=== PATIENT | female | born 1950 | race Caucasian/White ===

== ENCOUNTER 2018-04-14 09:51 | Inpatient (IN) | payer MEDICARE, OTHER ==
[2018-04-14] MEDS: Lactated Ringers 1,000 ML IV SCH (10:15)
--- NOTE | 2018-04-14 16:29 | PCM.HP ---
H&P History of Present Illness - General Date of Service: 04/14/18 Admit Problem/Dx: Admission Diagnosis/Problem Admission Diagnosis/Problem Dehydration Source of Information: Patient History Limitations: Reports: No Limitations - History of Present Illness Initial Comments - Free Text/Narative: Has low grade temp for 6-8 weeks. 3 days ago had N and Vomiting for >12 hrs Friday. Has had a hard time holding down water for 3 days. Has had weakness and loss of appetite. Has Lost 5 pound recently. Abdominal pain moderate in severity cramping dull pain. Associated Symptoms: Reports: Cough, Loss of Appetite, Nausea/Vomiting, Weakness Abdominal Pain Score (Numeric/FACES): 1 Neck Pain Score (Numeric/FACES): 4 - Related Data Allergies/Adverse Reactions: Allergies Allergy/AdvReac Type Severity Reaction Status Date / Time clindamycin Allergy Difficulty Verified 03/16/15 06:52 Swallowing doxycycline Allergy Muscle Verified 04/14/18 14:02 Aches morphine Allergy Pain Verified 03/16/15 06:52 Home Medications: Home Meds Aspirin [Adult Low Dose Aspirin EC] 81 mg PO DAILY 10/05/14 [History] Calcium Carbonate/Vitamin D3 [Calcium 600-Vit D3 400 Tablet] 1 each PO DAILY 04/13 [History] Metoprolol Succinate 25 mg PO DAILY 10/05/14 [History] Multivitamin [Multi-Vitamin Daily] 1 each PO DAILY 10/05/14 [History] Levothyroxine [Synthroid] 50 mcg PO DAILY 04/14/18 [History] Past Medical History - Past Health History Medical/Surgical History: Denies Medical/Surgical History HEENT History: Reports: Cataract, Sinusitis Cardiovascular History: Reports: Other (See Below) Other Cardiovascular History: States "I think I have mitral valve prolapse" Respiratory History: Reports: Asthma Musculoskeletal History: Reports: Arthritis, Back Pain, Chronic, Fibromyalgia, Neck Pain, Chronic, Osteoarthritis Neurological History: Reports: Headaches, Chronic, Vertigo Endocrine/Metabolic History: Reports: Hypothyroidism - Infectious Disease History Infectious Disease History: Reports: Influenza - Past Surgical History HEENT Surgical History: Reports: Cataract Surgery Cardiovascular Surgical History: Reports: None Respiratory Surgical History: Reports: None Endocrine Surgical History: Reports: Other (See Below) Other Endocrine Surgeries/Procedures: "bursted nodule on thyroid-surgery on previously" Neurological Surgical History: Reports: Spinal Fusion, Other (See Below) Other Neurological Surgeries/Procedures: "Plate in neck from fusion" Musculoskeletal Surgical History: Reports: None Dermatological Surgical History: Reports: None Social & Family History - Family History Family Medical History: Noncontributory - Tobacco Use Smoking Status *Q: Never Smoker - Caffeine Use Caffeine Use: Reports: Coffee - Recreational Drug Use Recreational Drug Use: No H&P Review of Systems - Review of Systems: Review Of Systems: See Below General: Reports: Fever, Chills, Malaise, Weakness, Fatigue HEENT: Reports: No Symptoms Pulmonary: Reports: Shortness of Breath, Cough Gastrointestinal: Reports: Abdominal Pain, Diarrhea, Decreased Appetite, Nausea Genitourinary: Reports: No Symptoms Musculoskeletal: Reports: Muscle Pain Skin: Reports: No Symptoms Neurological: Reports: Dizziness, Headache, Weakness Exam - Exam Exam: See Below - Vital Signs Vital Signs: Last Vital Signs Temp 98.5 F 04/14/18 14:02 Pulse 65 04/14/18 14:02 Resp 16 04/14/18 14:02 BP 117/60 04/14/18 14:02 Pulse Ox 94 L 04/14/18 14:02 Weight: 155 lb - Exam General: Alert, Oriented, 4 HEENT: PERRLA, Hearing Intact, Mucosa Moist & [place], Nares Patent, Normal Nasal Septum, Posterior Pharynx Clear, Conjunctiva Clear, EOMI, EACs Clear, TMs Clear Lungs: Clear to Auscultation, Normal Respiratory Effort Cardiovascular: Regular Rate, Regular Rhythm GI/Abdominal Exam: Tender, Abnormal Bowel Sounds Back Exam: Normal Inspection, Full Range of Motion, NT Extremities: Normal Inspection Peripheral Pulses: 1+: Radial (L), Radial (R) Skin: Warm, Dry, Intact Neurological: Cranial Nerves Intact, Reflexes Equal Bilateral Neuro Extensive - Mental Status: Alert, Oriented x3, Normal Mood/Affect, Normal Cognition DTR: 1+: Bicep (L), Bicep (R) Psychiatric: Alert, Normal Affect, Normal Mood - Patient Data Result Diagrams: 04/14/18 16:32 04/14/18 16:32 Problem List Initiated/Reviewed/Updated: Yes Orders Last 24hrs: Active Orders 24 hr Category Date Time Status Admission Status [Patient Status] [ADT] Routine ADT 04/14/18 10:00 Active Intake and Output [RC] QSHIFT Care 04/14/18 10:36 Active Up ad Li [RC] ASDIRECTED Care 04/14/18 10:02 Active Vital Signs [RC] Q4H Care 04/14/18 10:02 Active Clear Liquid Diet [DIET] Diet 04/14/18 Lunch Active CXR [Chest 2V] [CR] Routine Exams 04/14/18 16:16 Ordered CBC WITH AUTO DIFF [HEME] Routine Lab 04/14/18 16:15 Ordered CLOSTRIDIUM DIFFICILE BY PCR [RM] Routine Lab 04/14/18 16:19 Ordered COMPREHENSIVE METABOLIC PN,CMP [CHEM] Routine Lab 04/14/18 16:15 Ordered CULTURE URINE [RM] Routine Lab 04/15/18 05:00 Ordered Lactated Ringers [Ringers, Lactated] 1,000 ml Med 04/14/18 10:15 Active IV ASDIRECTED SCD [Sequential Compression Device] [OM.PC] Routine Oth 04/14/18 10:04 Ordered Code Status [Resuscitation Status] Routine Resus Stat 04/14/18 10:01 Ordered Medication Orders Lactated Ringer's (Ringers, Lactated) 1,000 mls @ 100 mls/hr IV ASDIRECTED ANTHONY Last Admin: 04/14/18 10:15 Dose: 100 mls/hr Assessment/Plan Comment:: Assessment/Plan: #1. Dehydration, diarrhea: Will give fluids slowly. Blood work pending. #2. Viral Syndrome. #3. HTN: continue with meds. #4. Fibramyalgias: chronic and stable #5. Hypothyroidism: Will continue with thyroid medication
[2018-04-15] MEDS: Lactated Ringers 1,000 ML IV SCH ×2 (05:39→18:14)
[2018-04-15] MEDS: Levothyroxine 50 MCG Tab PO SCH (07:20)
--- NOTE | 2018-04-15 09:43 | CR ---
Chest 2V Comparison: December 2008. FINDINGS: There is hyperinflation consistent with COPD. The heart and vascular structures are normal in appearance. No infiltrates or effusions are demonstrated. The skeletal structures are unremarkable . IMPRESSION: 1. No acute findings.
[2018-04-15] MEDS: Multivitamins with Iron/Calcium/Folic Acid/Minerals Tab PO SCH (09:47)
[2018-04-15] MEDS: Calcium Carbonate/Vitamin D3 1500 MG-400 Units Tab PO SCH (09:47)
[2018-04-15] MEDS: Metoprolol Succinate 25 MG Tab.ER PO SCH (09:47)
[2018-04-15] MEDS: Aspirin 81 MG Tab.EC PO SCH (09:47)
[2018-04-15] MEDS: Loperamide 2 MG Cap PO PRN ×2 (12:57→18:13)
[2018-04-15] MEDS: Ondansetron 4 MG Tab.DIS PO PRN ×2 (12:57→18:13)
[2018-04-16] MEDS: Lactated Ringers 1,000 ML IV SCH ×2 (03:34→10:47)
[2018-04-16] MEDS ORDERED: fentaNYL 100 MCG/2 ML SDV ONE (07:04)
[2018-04-16] MEDS ORDERED: Midazolam 1 MG/ML 2 ML SDV ONE (07:04)
[2018-04-16] MEDS ORDERED: Propofol 200 MG/20 ML SDV ONE (07:04)
--- NOTE | 2018-04-16 08:02 | PCM.PN ---
- General Info Date of Service: 04/15/18 Subjective Update: Every time she eats she has diarrhea with mild nausea without vomiting. He pain level is 6/10. Functional Status: Reports: Pain Controlled - Review of Systems General: Reports: Weakness HEENT: Reports: No Symptoms Pulmonary: Reports: No Symptoms Cardiovascular: Reports: No Symptoms Gastrointestinal: Reports: Diarrhea Genitourinary: Reports: No Symptoms Musculoskeletal: Reports: No Symptoms Skin: Reports: No Symptoms Neurological: Reports: No Symptoms Psychiatric: Reports: No Symptoms - Patient Data Vitals - Most Recent: Last Vital Signs Temp 96.8 F 04/16/18 07:50 Pulse 68 04/16/18 07:50 Resp 20 04/16/18 07:50 BP 87/37 L 04/16/18 07:50 Pulse Ox 96 04/16/18 07:50 Weight - Most Recent: 155 lb I&O - Last 24 Hours: Intake & Output 04/15/18 04/16/18 04/16/18 22:59 06:59 14:59 Intake Total 1643 1521 Output Total 1275 900 400 Balance 368 621 -400 Lab Results Last 24 Hours: Laboratory Results - last 24 hr 04/15/18 Range/Units 08:23 Monoscreen Negative (NEGATIVE) [place] Results Last 24 Hours: Microbiology 04/15/18 00:01 Urine Culture - Preliminary Urine, Clean Catch Med Orders - Current: Current Medications Aspirin (Halfprin) 81 mg PO DAILY [facility] Last Admin: 04/15/18 09:47 Dose: Not Given Calcium Carbonate (Caltrate 600+D 1500 Mg-400 Units) 1 tab PO DAILY [facility] Last Admin: 04/15/18 09:47 Dose: 1 tab Lactated Ringer's (Ringers, Lactated) 1,000 mls @ 100 mls/hr IV ASDIRECTED [facility] Last Admin: 04/16/18 03:34 Dose: 100 mls/hr Levothyroxine Sodium (Synthroid) 50 mcg PO ACBREAKFAST [facility] Last Admin: 04/15/18 07:20 Dose: 50 mcg Loperamide HCl (Imodium) 2 mg PO ASDIRECTED PRN PRN Reason: Diarrhea Last Admin: 04/15/18 18:13 Dose: 2 mg Metoprolol Succinate (Toprol Xl) 25 mg PO DAILY [facility] Last Admin: 04/15/18 09:47 Dose: 25 mg Multivitamins/Minerals (Thera M Plus) 1 tab PO DAILY [facility] Last Admin: 04/15/18 09:47 Dose: Not Given Ondansetron HCl (Zofran Odt) 4 mg PO Q4H PRN PRN Reason: Nausea/Vomiting Last Admin: 04/15/18 18:13 Dose: 4 mg Discontinued Medications Fentanyl (Sublimaze) Confirm Administered Dose 100 mcg .ROUTE .STK-MED ONE Stop: 04/16/18 07:05 Midazolam HCl (Versed 1 Mg/Ml) Confirm Administered Dose 2 mg .ROUTE .STK-MED ONE Stop: 04/16/18 07:05 Propofol (Diprivan 20 Ml) Confirm Administered Dose 200 mg .ROUTE .STK-MED ONE Stop: 04/16/18 07:05 - Exam General: Alert, Oriented HEENT: Pupils Equal, Pupils Reactive, EOMI, Mucous Membr. Moist/[place] Neck: Supple Lungs: Clear to Auscultation, Normal Respiratory Effort Cardiovascular: Regular Rate, Regular Rhythm GI/Abdominal Exam: Tender, Other (There is pain to palpation thoughout the abd and epigastric area) Extremities: Normal Inspection, Normal Range of Motion, Non-Tender, No Pedal Edema, Normal Capillary Refill Peripheral Pulses: 1+: Radial (L), Radial (R) Skin: Warm, Dry, Intact - Problem List Review Problem List Initiated/Reviewed/Updated: Yes - My Orders Last 24 Hours: My Active Orders 04/15/18 07:30 Levothyroxine [Synthroid] 50 mcg PO ACBREAKFAST 04/15/18 09:00 Aspirin [Halfprin] 81 mg PO DAILY Calcium Carbonate/Vitamin D3 [Caltrate 600+D 1500 MG-400 Units] 1 tab PO DAILY Metoprolol Succinate [Toprol XL] 25 mg PO DAILY Multivitamins w-Iron/Ca/FA/Min [Thera M Plus] 1 tab PO DAILY 04/15/18 12:32 Ondansetron [Zofran ODT] 4 mg PO Q4H PRN 04/15/18 12:33 Loperamide [Imodium] 2 mg PO ASDIRECTED PRN 04/15/18 12:39 H PYLORI, IGM, IGG, IGA AB Routine 04/15/18 21:09 Verify Patient Consent Obtain [RC] ASDIRECTED 04/15/18 Lunch Regular Diet [DIET] 04/16/18 07:45 JUSTIN TEST [RM] Routine 04/16/18 Breakfast Nothing per Oral After Midnight Diet [DIET] - Plan Plan:: Assessment/Plan: #1. Diarrhea: Etiology unknown. Will do an EGD in the morning.H Pylori is pending and C Dif was neg. Her Monocytes were elevated and silvia test was neg. #2. Viral Syndrome. #3. HTN: continue with meds. #4. Fibramyalgias: chronic and stable #5. Hypothyroidism: Will continue with thyroid medication
[2018-04-16] MEDS: Levothyroxine 50 MCG Tab PO SCH (08:36)
[2018-04-16] MEDS: Calcium Carbonate/Vitamin D3 1500 MG-400 Units Tab PO SCH (09:27)
[2018-04-16] MEDS: Multivitamins with Iron/Calcium/Folic Acid/Minerals Tab PO SCH (09:27)
[2018-04-16] MEDS: Aspirin 81 MG Tab.EC PO SCH (09:27)
[2018-04-16] MEDS: Metoprolol Succinate 25 MG Tab.ER PO SCH (09:28)
--- NOTE | 2018-04-16 10:26 | PROC ---
DATE OF PROCEDURE: 04/16/2018 INDICATION: Christianne is a 68-year-old female who comes in because of dehydration, diarrhea, and vomiting as well as abdominal pain. I advised her to have an esophageal gastroduodenoscopy. I did not identify any reason for the diarrhea as it has not been found as of yet. The risks and benefits were explained to her and the procedure was done in the OR. The risks and benefits were explained to her. PROCEDURE IN DETAIL: Anesthesia was given by nurse interior decorator painting. The Olympus 180 scope was used and it was placed into the pharynx and into the esophagus without difficulty and advanced under direct vision into the stomach. The pylorus was identified and advanced in the first and second part of the duodenum. Upon retraction of the tube, noted no duodenal lesion or abnormality. The tube was brought back into the stomach, which revealed very mild erythema. Biopsy was done for Helicobacter pylori, Remy. She had good observation of the greater and lesser curvature as well as retroflexed into the fundus, which revealed no abnormality. There was a small amount of blood noted after the biopsy. This did stop, however. The GE junction was identified and air was withdrawn from the stomach. There was a hiatal hernia noted 2-3 cm in size. The remainder of the esophagus was unremarkable. The vocal cords were unremarkable. No obvious pathology noted. The tube was removed. The patient tolerated the procedure well. PREOP: Abdominal pain. POSTOP: 1. Mild gastric mucosa erythema. Biopsy pending for Helicobacter pylori. 2. Hiatal hernia. Wolf Otoole MD /[id number]
[2018-04-16] MEDS: Loperamide 2 MG Cap PO PRN ×2 (10:49→14:59)
[2018-04-16] MEDS ORDERED: Lactobacillus Rhamnosus GG (Probiotic) Cap PO SCH (15:00)
[2018-04-16 15:44] VITALS: BP 143/67
--- NOTE | 2018-04-16 17:38 | PCM.PN ---
- General Info Date of Service: 04/16/18 - Review of Systems General: Reports: Weakness, Fatigue HEENT: Reports: No Symptoms Pulmonary: Reports: Cough Cardiovascular: Reports: No Symptoms Gastrointestinal: Reports: Abdominal Pain Genitourinary: Reports: No Symptoms Musculoskeletal: Reports: No Symptoms Skin: Reports: No Symptoms Neurological: Reports: No Symptoms Psychiatric: Reports: No Symptoms - Patient Data Vitals - Most Recent: Last Vital Signs Temp 98.7 F 04/16/18 15:40 Pulse 75 04/16/18 15:40 Resp 16 04/16/18 15:40 BP 143/67 H 04/16/18 15:40 Pulse Ox 94 L 04/16/18 15:40 Weight - Most Recent: 155 lb I&O - Last 24 Hours: Intake & Output 04/16/18 04/16/18 04/16/18 06:59 14:59 22:59 Intake Total 1521 1520 Output Total 900 2080 450 Balance 621 -560 -450 [place] Results Last 24 Hours: Microbiology 04/15/18 00:01 Urine Culture - Preliminary Urine, Clean Catch Med Orders - Current: Current Medications Aspirin (Halfprin) 81 mg PO DAILY [facility] Last Admin: 04/16/18 09:27 Dose: 81 mg Calcium Carbonate (Caltrate 600+D 1500 Mg-400 Units) 1 tab PO DAILY [facility] Last Admin: 04/16/18 09:27 Dose: Not Given Lactated Ringer's (Ringers, Lactated) 1,000 mls @ 100 mls/hr IV ASDIRECTED [facility] Last Admin: 04/16/18 10:47 Dose: 100 mls/hr Lactobacillus Rhamnosus (Culturelle) 2 cap PO BID [facility] Last Admin: 04/16/18 15:40 Dose: 2 cap Levothyroxine Sodium (Synthroid) 50 mcg PO ACBREAKFAST [facility] Last Admin: 04/16/18 08:36 Dose: 50 mcg Loperamide HCl (Imodium) 2 mg PO ASDIRECTED PRN PRN Reason: Diarrhea Last Admin: 04/16/18 14:59 Dose: 2 mg Metoprolol Succinate (Toprol Xl) 25 mg PO DAILY [facility] Last Admin: 04/16/18 09:28 Dose: 25 mg Multivitamins/Minerals (Thera M Plus) 1 tab PO DAILY [facility] Last Admin: 04/16/18 09:27 Dose: Not Given Ondansetron HCl (Zofran Odt) 4 mg PO Q4H PRN PRN Reason: Nausea/Vomiting Last Admin: 04/15/18 18:13 Dose: 4 mg Discontinued Medications Fentanyl (Sublimaze) Confirm Administered Dose 100 mcg .ROUTE .STK-MED ONE Stop: 04/16/18 07:05 Midazolam HCl (Versed 1 Mg/Ml) Confirm Administered Dose 2 mg .ROUTE .STK-MED ONE Stop: 04/16/18 07:05 Propofol (Diprivan 20 Ml) Confirm Administered Dose 200 mg .ROUTE .STK-MED ONE Stop: 04/16/18 07:05 - Exam General: Alert, Oriented HEENT: Pupils Equal, Pupils Reactive, EOMI, Mucous Membr. Moist/[place] Neck: Supple Lungs: Clear to Auscultation, Normal Respiratory Effort Cardiovascular: Regular Rate, Regular Rhythm GI/Abdominal Exam: Non-Tender Back Exam: Normal Inspection, Full Range of Motion Extremities: Normal Inspection, Normal Range of Motion, Non-Tender, No Pedal Edema, Normal Capillary Refill Peripheral Pulses: 1+: Radial (L), Radial (R) Skin: Warm, Dry, Intact Psy/Mental Status: Alert, Normal Affect, Normal Mood - Problem List Review Problem List Initiated/Reviewed/Updated: Yes - My Orders Last 24 Hours: My Active Orders 04/15/18 21:09 Verify Patient Consent Obtain [RC] ASDIRECTED 04/16/18 07:45 ERIN TEST [RM] Routine 04/16/18 15:00 Lactobacillus Rhamnosus GG [Culturelle] 2 cap PO BID - Plan Plan:: Assessment/Plan: #1. Diarrhea: Etiology unknown. EGD was negative and Erin test is pending. Diarrhea is improved with meds. Will Discharge home today and follow in the office next week. #2. Viral Syndrome. #3. HTN: continue with meds. #4. Fibramyalgias: chronic and stable #5. Hypothyroidism: Will continue with thyroid medication
--- NOTE | 2018-04-16 17:45 | PCM.DCSUM1 ---
Discharge Summary - Hospital Course Brief History: Has low grade temp for 6-8 weeks. 5 days ago had N and Vomiting for >12 hrs Friday. Has had a hard time holding down water for 3 days before admission. Has had weakness and loss of appetite. Has Lost 5 pound recently. Abdominal pain moderate in severity cramping dull pain. - Discharge Data Discharge Date: 04/16/18 Discharge Disposition: Home, Self-Care 01 Condition: Good - Patient Summary/Data Hospital Course: Diarrhea has improved with medication. The EGD was negative. Yesica test is pending. Diarrhea is improving. Will see next week in the office. C.Diff was neg. Dehydration as improved. - Patient Instructions Diet: Heart Healthy Diet Activity: As Tolerated - Discharge Plan Home Medications: Home Meds Aspirin [Adult Low Dose Aspirin EC] 81 mg PO DAILY 10/05/14 [History] Calcium Carbonate/Vitamin D3 [Calcium 600-Vit D3 400 Tablet] 1 each PO DAILY 04/13 [History] Metoprolol Succinate 25 mg PO DAILY 10/05/14 [History] Multivitamin [Multi-Vitamin Daily] 1 each PO DAILY 10/05/14 [History] Levothyroxine [Synthroid] 50 mcg PO DAILY 04/14/18 [History] Lactobacillus Rhamnosus GG [Culturelle] 2 cap PO BID cap 04/16/18 [Rx] Loperamide [Imodium] 2 mg PO ASDIRECTED PRN cap 04/16/18 [Rx] Ondansetron [Zofran ODT] 4 mg PO Q4H PRN tab.dis 04/16/18 [Rx] - Patient Data Vitals - Most Recent: Last Vital Signs Temp 98.7 F 04/16/18 15:40 Pulse 75 04/16/18 15:40 Resp 16 04/16/18 15:40 BP 143/67 H 04/16/18 15:40 Pulse Ox 94 L 04/16/18 15:40 Weight - Most Recent: 155 lb I&O - Last 24 hours: Intake & Output 04/16/18 04/16/18 04/16/18 06:59 14:59 22:59 Intake Total 1521 1520 Output Total 900 2080 450 Balance 621 -560 -450 LANI Results - Last 24 hrs: Microbiology 04/15/18 00:01 Urine Culture - Preliminary Urine, Clean Catch Med Orders - Current: Current Medications Aspirin (Halfprin) 81 mg PO DAILY [facility] Last Admin: 04/16/18 09:27 Dose: 81 mg Calcium Carbonate (Caltrate 600+D 1500 Mg-400 Units) 1 tab PO DAILY [facility] Last Admin: 04/16/18 09:27 Dose: Not Given Lactated Ringer's (Ringers, Lactated) 1,000 mls @ 100 mls/hr IV ASDIRECTED [facility] Last Admin: 04/16/18 10:47 Dose: 100 mls/hr Lactobacillus Rhamnosus (Culturelle) 2 cap PO BID [facility] Last Admin: 04/16/18 15:40 Dose: 2 cap Levothyroxine Sodium (Synthroid) 50 mcg PO ACBREAKFAST [facility] Last Admin: 04/16/18 08:36 Dose: 50 mcg Loperamide HCl (Imodium) 2 mg PO ASDIRECTED PRN PRN Reason: Diarrhea Last Admin: 04/16/18 14:59 Dose: 2 mg Metoprolol Succinate (Toprol Xl) 25 mg PO DAILY [facility] Last Admin: 04/16/18 09:28 Dose: 25 mg Multivitamins/Minerals (Thera M Plus) 1 tab PO DAILY [facility] Last Admin: 04/16/18 09:27 Dose: Not Given Ondansetron HCl (Zofran Odt) 4 mg PO Q4H PRN PRN Reason: Nausea/Vomiting Last Admin: 04/15/18 18:13 Dose: 4 mg Discontinued Medications Fentanyl (Sublimaze) Confirm Administered Dose 100 mcg .ROUTE .STK-MED ONE Stop: 04/16/18 07:05 Midazolam HCl (Versed 1 Mg/Ml) Confirm Administered Dose 2 mg .ROUTE .STK-MED ONE Stop: 04/16/18 07:05 Propofol (Diprivan 20 Ml) Confirm Administered Dose 200 mg .ROUTE .STK-MED ONE Stop: 04/16/18 07:05
== END 2018-04-16 18:39 | disposition home or self-care (01) | DRG 641 ==
LOC: JP.2SS 09:51
PROVIDERS: ADMIT Internal Medicine; ATTEND Internal Medicine
PROC: 0DB68ZX Excision of Stomach, Via Natural or Artificial Opening Endoscopic, Diagnostic (ICD-10-PCS; principal; 2018-04-16)
DX: E86.0 Dehydration (principal); B34.9 Viral infection, unspecified; K44.9 Diaphragmatic hernia without obstruction or gangrene; K31.89 Other diseases of stomach and duodenum; I10 Essential (primary) hypertension; R19.7 Diarrhea, unspecified; J32.9 Chronic sinusitis, unspecified; J45.909 Unspecified asthma, uncomplicated; M19.90 Unspecified osteoarthritis, unspecified site; G89.29 Other chronic pain; M54.9 Dorsalgia, unspecified; M79.7 Fibromyalgia; M54.2 Cervicalgia; R42 Dizziness and giddiness; R51 Headache; E03.9 Hypothyroidism, unspecified; Z98.1 Arthrodesis status; Z79.82 Long term (current) use of aspirin; Z79.899 Other long term (current) drug therapy
CPT/HCPCS: 36415; 71046; 71046-26; 80053; 81001; 84443; 85025; 85651; 86140; 86308; 86677; 87081; 87086; 87088; 87186; 87493; A9270-GY; J2250; J2704; J3010; J7120